=== PATIENT | female | born 1950 | race Caucasian/White ===

== ENCOUNTER 2020-09-14 04:16 | Day surgery (SDC) | payer MEDICARE ==
[~2020-09-14] VITALS: Ht 177.8 cm; Wt 88.0 kg
[2020-09-14] MEDS ORDERED: DITR5TAB PO (04:51)
[2020-09-14] MEDS ORDERED: LEVO125C PO (04:51)
[2020-09-14] MEDS ORDERED: ATOR1TAB19 PO (04:51)
[2020-09-14] MEDS ORDERED: CAL-TAB2 PO (04:51)
[2020-09-14] MEDS ORDERED: MAGN250T22 PO (04:51)
[2020-09-14] MEDS ORDERED: MULT-90 PO (04:51)
[2020-09-14] MEDS ORDERED: ASPI81CH33 PO (04:51)
[2020-09-14] MEDS ORDERED: BENA25CA4 PO (04:51)
[2020-09-14] MEDS ORDERED: TRAM50TA2 PO (04:51)
[2020-09-14 05:00] LABS: BASO % 0.4 % (0.0-1.0); EOS # 0.1 10^3/uL (0.0-0.5); EOS % 0.9 % (0.0-3.0); HEMATOCRIT 47.6 % (36.0-47.0); HEMOGLOBIN 16.1 g/dl (12.0-15.5); LYMPH # 1.4 10^3/uL (1.5-5.0); LYMPH % 12.1 % (24.0-44.0); MEAN CORPUSCULAR HEMOGLOBIN 32.1 pg (27.0-33.0); MEAN CORPUSCULAR HGB CONC 33.8 g/dl (32.0-36.5); MEAN CORPUSCULAR VOLUME 94.8 fl (80.0-96.0); MONO # 0.6 10^3/uL (0.0-0.8); MONO % 5.2 % (2.0-8.0); NEUTROPHILS # 9.2 10^3/uL (1.5-8.5); NEUTROPHILS % 80.9 % (36.0-66.0); PLATELET COUNT, AUTOMATED 243 10^3/uL (150-450); RED BLOOD COUNT 5.02 10^6/uL (4.00-5.40); WHITE BLOOD COUNT 11.4 10^3/uL (4.0-10.0)
[2020-09-14] MEDS ORDERED: ONDANSETRON 4MG/2ML VIAL IV ONE ×3 (05:10→10:25)
[2020-09-14] MEDS ORDERED: ASPIRIN 81 MG CHEW TABLET PO ONE (05:10)
[2020-09-14 05:23] LABS: BLOOD UREA NITROGEN 11 MG/DL (7-18); CALCIUM LEVEL 9.4 MG/DL (8.8-10.2); CARBON DIOXIDE LEVEL 29 MEQ/L (21-32); CHLORIDE LEVEL 105 MEQ/L (98-107); CREATININE FOR GFR 0.55 MG/DL (0.55-1.30); GLOMERULAR FILTRATION RATE > 60.0 (>45); GLUCOSE, FASTING 169 MG/DL (70-100); POTASSIUM SERUM 4.1 MEQ/L (3.5-5.1); SODIUM LEVEL 139 MEQ/L (136-145)
[2020-09-14] MEDS: NITROGLYCERIN 0.4 MG SUBL TABLET SL PRN ×2 (05:37→05:46)
[2020-09-14 05:46] VITALS: BP 133/65
[2020-09-14] MEDS ORDERED: ISOVUE-370 76% 100ML VIAL As Ordered ONE (06:00)
[2020-09-14] MEDS: MORPHINE 4 MG/ML 1ML VIAL/SYRINGE (J2270) IV PRN ×2 (06:02→10:07)
[2020-09-14 06:15] LABS: ALBUMIN 4.3 GM/DL (3.2-5.2); ALT/SGPT 64 U/L (12-78); BILIRUBIN,DIRECT 0.3 MG/DL (0.0-0.2); BILIRUBIN,TOTAL 0.7 MG/DL (0.2-1.0); LIPASE 86 U/L (73-393)
--- NOTE | 2020-09-14 06:36 | REPVR ---
PROCEDURE INFORMATION: Exam: XR Chest Exam date and time: 09/14/20 (4:49am) Age: 69 years old Clinical indication: Chest pain TECHNIQUE: Imaging protocol: Portable CXR Views: 1 view COMPARISON: No relevant prior studies available FINDINGS: Lungs: Unremarkable. No consolidation. Pleural spaces: Unremarkable. No pleural effusions. No pneumothorax. Heart/Mediastinum: No cardiomegaly. Aortic knob calcification. Bones/joints: Scoliotic levoscoliosis of the lumbar spine. IMPRESSION: No acute findings. Electronically signed by: Daysi Castro On 09/14/2020 06:36:35 AM
--- NOTE | 2020-09-14 07:28 | REPVR ---
PROCEDURE INFORMATION: Exam: CTA Chest With Contrast Exam date and time: 09/14/2020 6:25 AM Age: 69 years old Clinical indication: Other: Chest pain, epigastric pain TECHNIQUE: Imaging protocol: Computed tomographic angiography of the chest with contrast. 3D rendering (Not supervised by radiologist): MIP and/or 3D reconstructed images were created by the technologist. Radiation optimization: All CT scans at this facility use at least one of these dose optimization techniques: automated exposure control; mA and/or kV adjustment per patient size (includes targeted exams where dose is matched to clinical indication); or iterative reconstruction. Contrast material: ISOVUE 370; Contrast volume: 100 ml; Contrast route: INTRAVENOUS (IV); COMPARISON: CR PORTABLE CHEST X-RAY 09/14/2020 4:47 AM FINDINGS: Pulmonary arteries: No pulmonary emboli. Aorta: No aortic aneurysm. No aortic dissection. Lungs: There is some patchy basilar atelectasis. Pleural spaces: No pneumothorax. No pleural effusion. Heart: No cardiomegaly. No pericardial effusion. Mediastinal space: There is a small hiatal hernia. Lymph nodes: No enlarged lymph nodes. Bones/joints: There are degenerative changes of the spine. Soft tissues: Unremarkable. IMPRESSION: There is no pulmonary embolism. Electronically signed by: Kirby Lee On 09/14/2020 07:27:42 AM
--- NOTE | 2020-09-14 07:30 | REPVR ---
PROCEDURE INFORMATION: Exam: CT Abdomen And Pelvis With Contrast Exam date and time: 09/14/2020 6:25 AM Age: 69 years old Clinical indication: Other: Chest pain, epigastric pain TECHNIQUE: Imaging protocol: Computed tomography of the abdomen and pelvis with contrast. Radiation optimization: All CT scans at this facility use at least one of these dose optimization techniques: automated exposure control; mA and/or kV adjustment per patient size (includes targeted exams where dose is matched to clinical indication); or iterative reconstruction. Contrast material: ISOVUE 370; Contrast volume: 100 ml; Contrast route: INTRAVENOUS (IV); COMPARISON: CR PORTABLE CHEST X-RAY 09/14/2020 4:47 AM FINDINGS: Liver: Normal. No mass. Gallbladder and bile ducts: The gallbladder is quite distended measuring 16.2 cm in length. There is pericholecystic fluid. Pancreas: Normal. No ductal dilation. Spleen: Normal. No splenomegaly. Adrenal glands: Normal. No mass. Kidneys and ureters: Normal. No hydronephrosis. Stomach and bowel: There is a moderate amount of stool throughout the nondilated colon. Appendix: No evidence of appendicitis. Intraperitoneal space: No free air. No significant fluid collection. Vasculature: There is athrosclerotic disease involving the abdominal aorta and pelvis vessels without an aneurysm. Lymph nodes: No enlarged lymph nodes. Urinary bladder: Unremarkable as visualized. Reproductive: Uterus is surgically absent. Bones/joints: There are degenerative changes of the spine. There is grade 1 anterolisthesis at L4-L5. Soft tissues: Unremarkable. Other findings: . IMPRESSION: Distended gallbladder with pericholecystic fluid. Acute cholecystitis may be present. A follow-up ultrasound should be performed. Electronically signed by: Kirby Lee On 09/14/2020 07:29:53 AM
[2020-09-14 07:58] LABS: BASO % 0.3 % (0.0-1.0); EOS % 0.1 % (0.0-3.0); LYMPH # 1.1 10^3/uL (1.5-5.0); MONO # 0.8 10^3/uL (0.0-0.8); MONO % 5.7 % (2.0-8.0); NEUTROPHILS # 11.8 10^3/uL (1.5-8.5); NEUTROPHILS % 85.6 % (36.0-66.0); WHITE BLOOD COUNT 13.8 10^3/uL (4.0-10.0)
[2020-09-14 08:26] LABS: ALBUMIN 3.8 GM/DL (3.2-5.2); BILIRUBIN,DIRECT 0.3 MG/DL (0.0-0.2); BILIRUBIN,TOTAL 0.7 MG/DL (0.2-1.0)
--- NOTE | 2020-09-14 08:40 | REP ---
INDICATION: cholecystitis. COMPARISON: CT abdomen 09/14/2020 TECHNIQUE: Standard right upper quadrant sonography. FINDINGS: Of the liver is homogeneous in echotexture and does not show focal hepatic mass, intrahepatic biliary dilatation, hepatomegaly or cyst. No definite ascites. The gallbladder is very distended as on CT with poor definition of margins. There is extensive echogenic material throughout with some speckled echoes and some shadowing suggesting sludge with crystals in it. Small amount pericholecystic fluid difficult to exclude. No measurable stone with shadowing seen. The common duct is 6 mm and without a gross filling defect. Pancreas is well seen and with out any ductal dilatation, echogenic focus to suggest stone within a duct, mass or adjacent peripancreatic fluid. The right kidney is 11.7 x 3.9 x 6.4 cm without hydronephrosis or definite stone. IMPRESSION: 1. Hydrops of the gallbladder as on CT with distended gallbladder filled with echogenic sludge and speckled echoes within it. No measurable shadowing stones identified. Small amount of pericholecystic fluid difficult to exclude. No sonographic Salgado sign described. 2. Liver homogeneous without acute finding. No intrahepatic biliary dilatation. 3. Common duct is 6 mm diameter without filling defect. 4. Pancreas well seen and unremarkable. 5. Right kidney unremarkable. <Electronically signed by Jm Ochoa > 09/14/20 [id number]
[2020-09-14] MEDS ORDERED: PIPERACILLIN/TAZOBACTAM SOD 3.375 GM in D5W MINI-BAG PLUS 50 ML IV ONE (09:45)
[2020-09-14] MEDS ORDERED: NS 1,000 ML IV SCH (10:10)
[2020-09-14] MEDS ORDERED: MORPHINE 4 MG/ML 1ML VIAL/SYRINGE (J2270) IV PRN (10:25)
[2020-09-14] MEDS ORDERED: GABA-282 PO (10:25)
[2020-09-14] MEDS ORDERED: LEVO100T5 PO (10:25)
[2020-09-14] MEDS ORDERED: OXYB5TAB10 PO (10:25)
[2020-09-14] MEDS ORDERED: ONDANSETRON 4MG/2ML VIAL IV PRN ×2 (11:50→20:35)
[2020-09-14] MEDS ORDERED: KETOROLAC 30 MG/ML 1ML VIAL IV PRN ×2 (11:50→20:30)
[2020-09-14] MEDS: NS 1,000 ML IV SCH ×2 (13:08→23:50)
[2020-09-14 14:20] LABS: RSV AMPLIFICATION NEGATIVE (NEGATIVE)
--- NOTE | 2020-09-14 14:36 | HPE ---
HISTORY AND PHYSICAL DATE OF ADMISSION: 09/14/2020 ADMITTING DIAGNOSIS: Acute cholecystitis. 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 She reported that she was feeling well until the evening of Monday the 12 of September when after eating out she noted the onset of some lower chest and upper abdominal pain. She described a persistent pressure in the epigastrium. She developed some nausea and vomiting. She denied any fevers or chills. The pain persisted and actually began to worsen further. After presenting to the Emergency Department she was initially evaluated for a possible cardiac issue. Troponin is 0 and imaging showed no evidence of pulmonary embolus on CT angiogram. Laboratory studies showed a mild elevation of her white count to 11,000 with 81% neutrophils. She had a CT scan of the abdomen and pelvis that showed a markedly distended gallbladder with some pericholecystic fluid. A follow up ultrasound confirmed a distended gallbladder filled with echogenic sludge with speckled echos. The common bile duct was 6 mm in diameter. She continued to have pain in the upper abdomen with tenderness in the right mid and lateral abdomen. I was consulted and the patient is now being placed on surgical day care status for acute cholecystitis. ALLERGIES: Patient reports that PENICILLIN use has led to a fungal infection previously, but she has not had an adverse reaction to the drugs directly. MEDICATIONS: Include: 1. Aspirin 81 mg by mouth daily. 2. Atorvastatin 10 mg by mouth daily. 3. Calcium, magnesium and zinc tablet daily. 4. Benadryl 25 mg by mouth at bedtime. 5. Gabapentin 900 mg by mouth three times daily. 6. Levothyroxine 100 mcg by mouth daily in the morning. 7. Magnesium 250 mg by mouth daily. 8. Multivitamin daily. 9. Oxybutynin chloride 5 mg by mouth twice daily. 10. Tramadol 50 mg, 1 tablet twice daily as needed for pain. SURGICAL HISTORY: 1. Patient has undergone a left breast lumpectomy with axillary sampling and radiation for an early stage breast cancer. She was treated with anastrozole for 5 years which was recently stopped. 2. She has a history of a hysterectomy for endometrial carcinoma and reports that she had no requirements for any further treatment after this. 3. She reports having had a tubal ligation done laparoscopically, but apparently there was some form of vascular injury at that surgery requiring extension of the incision somewhat. MEDICAL HISTORY: Patient reports a history of: 1. Supraventricular tachycardia which in the past had caused her to have a syncopal episode. She was evaluated by a milk route deliverer who did not feel there was any need for ongoing treatment for this. 2. History of hypothyroidism which is long standing. 3. Chronic back pain from degenerative disc disease. She is taking the gabapentin regularly and the tramadol on a p.r.n. basis. 4. Hypercholesterolemia. 5. She had her left breast cancer treated and her surgery for her endometrial carcinoma and required no additional treatment. Patient denies any history of other cardiac or pulmonary issues. She has no history of DVT or pulmonary embolus. FAMILY HISTORY: Noncontributory. 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 Her from prostate cancer 2 years ago. She is currently spending the summer in [place]. She is a nonsmoker and denies excessive alcohol intake. REVIEW OF SYSTEMS: Reveals no history of chest pain, palpitations, angina or myocardial infarction. She denies any cough, wheezing or sputum production. She has no history of peptic ulcer disease, hepatitis, pancreatitis or yellow jaundice. She denies any dysuria or hematuria. Other than her back pain she has no additional orthopedic issues. There is no history of DVT or pulmonary embolus. PHYSICAL EXAMINATION: GENERAL APPEARANCE: A pleasant woman lying quietly on the stretcher in the Emergency Department. She is alert, oriented and cooperative with the exam. SKIN: Warm and dry. HEENT: Sclerae are anicteric. Mucous membranes are moist. NECK: Supple without mass or bruit. HEART: Regular rate and rhythm. There is no murmur identified. LUNGS: Clear to auscultation bilaterally. ABDOMEN: Flat. She has some bowel sounds present. She has a few small scars consistent with her prior surgery. There is no sign of hernia. There is no tympany to percussion and no tenderness to percussion. There is on palpation tenderness in the right mid-abdomen extending down into the upper portion of the right lower quadrant. There is no definite mass palpable. EXTREMITIES: No peripheral edema and she has palpable radial and dorsalis pedis pulses. LABORATORY DATA: Laboratory studies include a CBC with a differential showing a white blood cell count of 11.4 with 81% neutrophils, 12% lymphocytes and 5% monocytes. Hemoglobin 16, hematocrit 48. On repeat approximately 3 hours later her white count was 14 with 86% neutrophils and 8% lymphocytes. Chemistry profile showed normal electrolytes with a BUN of 11, creatinine 0.6 and a glucose of 169. Total bilirubin is 0.7 with a direct of 0.3. AST 38, ALT 64, alkaline phosphatase 96 and a lipase of 86. A troponin level was 0.0. RADIOLOGY STUDIES: Chest x-ray revealed no acute findings. Her CT angiogram of the chest showed no evidence of pulmonary embolus. Abdomen and pelvis CT and gallbladder ultrasound are as noted in the History of Present Illness. IMPRESSIONS: 1. Acute cholecystitis. 2. History of supraventricular tachycardia. 3. Hypothyroidism. 4. Hypercholesterolemia. 5. Chronic back pain from degenerative disc disease. 6. Personal history of left breast cancer. 7. Personal history of endometrial cancer. PLAN: Patient was counseled regarding the presence of a markedly distended and apparently inflamed gallbladder. I advised her that the best approach is to start her on antibiotics and proceed with laparoscopic cholecystectomy at the earliest opportunity. The indications for the surgery as well as the risks and possible benefits were discussed. Risks include, but are not limited to bleeding, infection, scarring, adverse drug reaction, need for further surgery, injury of internal organ, leak of bile, and hernia. The patient had an opportunity to ask questions. These were answered to the best of my ability. She desires to proceed with the surgery. She will be continued on Zosyn for antibiotic coverage and we will add her into the OR schedule for later this afternoon. NATALIA
[2020-09-14] MEDS: MORPHINE 2 MG/ML 1ML VIAL (J2270) IV PRN (14:50)
[2020-09-14] MEDS ORDERED: BUPIVACAINE HCL 0.25% 30ML VIAL As Ordered ONE (14:56)
[2020-09-14] MEDS: PIPERACILLIN/TAZOBACTAM SOD 3.375 GM in D5W MINI-BAG PLUS 50 ML IV SCH ×2 (17:00→23:50)
[2020-09-14] MEDS ORDERED: ZOSYN 3.375GM VIAL (J2543) As Ordered ONE (17:44)
[2020-09-14] MEDS ORDERED: ePHEDrine SULFATE 25 MG/5 ML(5MG/ML) SYRINGE As Ordered ONE (18:57)
[2020-09-14] MEDS ORDERED: ACETAMINOPHEN 1000MG 100ML IV BTL (OFIRMEV) (J0131 PER 10MG) As Ordered ONE (18:57)
[2020-09-14] MEDS ORDERED: SUGAMMADEX SODIUM 500 MG/5 ML VIAL (BRIDION) As Ordered ONE (18:57)
[2020-09-14] MEDS ORDERED: LIDOCAINE 2% 100MG/5ML SDV (FOR ANES.) As Ordered ONE (18:57)
[2020-09-14] MEDS ORDERED: propofoL 200 MG/20 ML VIAL As Ordered ONE (18:57)
[2020-09-14] MEDS ORDERED: fentaNYL 250 MCG/5 ML INJECTION (J3010) As Ordered ONE (18:57)
[2020-09-14] MEDS ORDERED: MIDAZOLAM INJ 2MG/2ML VIAL (J2250 PER 1MG) As Ordered ONE (18:57)
[2020-09-14] MEDS ORDERED: PHENYLephrine 500MCG 5ML (100MCG/ML) SYRINGE As Ordered ONE (18:57)
[2020-09-14] MEDS ORDERED: ROCURONIUM BROMIDE 50 MG/5 ML VIAL As Ordered ONE (18:57)
[2020-09-14] MEDS ORDERED: ONDANSETRON 4MG/2ML VIAL As Ordered ONE (18:58)
[2020-09-14] MEDS ORDERED: dexameTHASONE 4 MG/ML 1ML VIAL (J1100 PER 1MG) As Ordered ONE (18:58)
[2020-09-14] MEDS ORDERED: ACETAMINOPHEN TAB 650MG DOSE (2X325MG) PO PRN (20:30)
[2020-09-14] MEDS ORDERED: oxyCODONE 5MG TAB PO PRN (20:35)
[2020-09-14] MEDS ORDERED: fentaNYL 100 MCG/2 ML INJECTION (J3010) IV PRN (20:35)
--- NOTE | 2020-09-14 21:10 | ECGEPIP ---
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
[2020-09-14 21:30] VITALS: BP 122/60
[2020-09-14 22:00] VITALS: BP 125/62
[2020-09-14 23:00] VITALS: BP 131/58
[2020-09-14] MEDS: GABAPENTIN 300 MG CAP PO SCH (23:50)
[2020-09-15 02:00] VITALS: BP 126/63
[2020-09-15] MEDS: PIPERACILLIN/TAZOBACTAM SOD 3.375 GM in D5W MINI-BAG PLUS 50 ML IV SCH ×3 (05:43→17:00)
[2020-09-15 06:00] VITALS: BP 105/52
[2020-09-15] MEDS ORDERED: LEVOTHYROXINE 100MCG TABLET (0.1MG) PO SCH (06:00)
[2020-09-15 07:15] LABS: BASO # 0.1 10^3/uL (0.0-0.2); BASO % 0.4 % (0.0-1.0); EOS # 0.2 10^3/uL (0.0-0.5); EOS % 1.7 % (0.0-3.0); HEMATOCRIT 40.2 % (36.0-47.0); LYMPH # 2.4 10^3/uL (1.5-5.0); LYMPH % 17.9 % (24.0-44.0); MEAN CORPUSCULAR HEMOGLOBIN 32.5 pg (27.0-33.0); MEAN CORPUSCULAR HGB CONC 33.3 g/dl (32.0-36.5); MEAN CORPUSCULAR VOLUME 97.6 fl (80.0-96.0); MONO # 1.4 10^3/uL (0.0-0.8); MONO % 10.2 % (2.0-8.0); NEUTROPHILS # 9.2 10^3/uL (1.5-8.5); NEUTROPHILS % 69.4 % (36.0-66.0); PLATELET COUNT, AUTOMATED 184 10^3/uL (150-450); RED BLOOD COUNT 4.12 10^6/uL (4.00-5.40); WHITE BLOOD COUNT 13.3 10^3/uL (4.0-10.0)
[2020-09-15 07:19] LABS: HEMOGLOBIN 13.4 g/dl (12.0-15.5)
[2020-09-15 07:36] LABS: ALBUMIN 2.8 GM/DL (3.2-5.2); ALT/SGPT 62 U/L (12-78); BLOOD UREA NITROGEN 15 MG/DL (7-18); CARBON DIOXIDE LEVEL 28 MEQ/L (21-32); CHLORIDE LEVEL 108 MEQ/L (98-107); CREATININE FOR GFR 0.39 MG/DL (0.55-1.30); GLOMERULAR FILTRATION RATE > 60.0 (>45); GLUCOSE, FASTING 117 MG/DL (70-100); POTASSIUM SERUM 3.8 MEQ/L (3.5-5.1); SODIUM LEVEL 140 MEQ/L (136-145); TOTAL PROTEIN 6.2 GM/DL (6.4-8.2)
[2020-09-15] MEDS: GABAPENTIN 300 MG CAP PO SCH ×2 (08:09→17:15)
[2020-09-15] MEDS ORDERED: ATORVASTATIN 10 MG TAB PO SCH (09:00)
[2020-09-15 10:00] VITALS: BP 118/62
[2020-09-15] MEDS: NS 1,000 ML IV SCH (10:18)
[2020-09-15] MEDS ORDERED: NORCO, ANEXSIA 5/325MG TABLET (HYDROcodone/ACETAMINOPHEN) PO PRN (11:35)
[2020-09-15 14:00] VITALS: BP 135/71
[2020-09-15] MEDS: MORPHINE 2 MG/ML 1ML VIAL (J2270) IV PRN (15:03)
--- NOTE | 2020-09-16 18:16 | RO ---
OPERATIVE NOTE DATE OF OPERATION: 09/14/2020 PREOPERATIVE DIAGNOSIS: Acute cholecystitis. POSTOPERATIVE DIAGNOSIS: Cholelithiasis with acute cholecystitis, possible gangrenous cholecystitis. PROCEDURE PERFORMED: Laparoscopic cholecystectomy. SURGEON: Parker Nguyen MD TRAFFIC RATE CLERK: None. ANESTHESIA: General. INDICATIONS FOR THE PROCEDURE: The patient is a 69-year-old woman who presented to the emergency department with a roughly 1-1/2 day history of upper abdominal pain with associated nausea and vomiting. She presented to the emergency department with severe pain in the right upper quadrant extending down into the right mid-abdomen. She had an elevated white blood cell count. A CT scan and ultrasound both showed a markedly distended gallbladder with the ultrasound showing echogenic material throughout the gallbladder with some speckled echoes and some shadowing. There was some pericholecystic fluid identified. The patient's exam and history and findings were felt to be consistent with acute cholecystitis and she is now for a laparoscopic cholecystectomy. OPERATIVE PROCEDURE: The patient was brought to the operating room and placed on the table in a supine position. She was placed under general endotracheal anesthesia. The patient's abdomen was prepped and draped in a sterile fashion. 1/4% Marcaine was infiltrated at each of the trocar sites as needed. Initial entry was in the left upper quadrant approximately 5 cm lateral to the midline. A short transverse incision was made and a Veress needle was inserted. After a positive hanging drop test, the abdomen was inflated with carbon dioxide gas. A 5 mm port was placed over a 5 mm scope and advanced through the abdominal wall without difficulty. Initial examination showed a markedly distended, edematous gallbladder extending into the right mid-abdomen. The fundus of the gallbladder was quite darkened. There was some free bilious fluid in the right paracolic gutter and extending up along the lateral aspect of the liver. The anterior abdominal wall was inspected. There appeared to be the start of a small hernia in the epigastrium slightly above the umbilicus at the site of a prior scar. I elected to make my second port site at this location. A longitudinal incision was made over this scar and an 11 mm port was placed without difficulty. Subsequently two 5 mm ports were placed in the right upper quadrant as well. The patient was tilted slightly to a reverse Trendelenburg position and rolled to the left. A suction improvement analyst was used to remove the bilious fluid from the right upper quadrant. The gallbladder was better inspected and there was marked edema and thickening of the gallbladder wall. The end of the fundus of the gallbladder was quite dark possibly representing bile staining. There was no obvious perforation and the gallbladder remained tensely distended. An aspirating needle was inserted and large amount of thick, blackish fluid was aspirated from the gallbladder. Culturettes were obtained with aerobic and anaerobic culturettes from this fluid. A gram stain was also requested. Once the gallbladder had been aspirated, the wall was still quite thickened but it was possible to grasp the gallbladder to manipulate this. The gallbladder was grasped and elected. There was obviously extensive edema in the tissues surrounding the gallbladder. This included in the area of the gallbladder neck and extending into the michael hepatis and about the duodenum. The peritoneum was opened along the gallbladder neck using the hook cautery. With careful dissection through this area, a cholecystic arterial branch was identified and this was doubly clipped with hemoclips and divided. With further dissection, the cystic duct was clearly identified. This was doubly clipped with hemoclips and divided as well. With further dissection, a second arterial branch was identified and controlled with clips. The gallbladder was then dissected free from the gallbladder bed using cautery dissection. Because of the marked edema in the surrounding tissues, this was a slower process. The gallbladder was not perforated in the course of dissection. The gallbladder was placed in an Endopouch. The right upper quadrant was the copiously irrigated with saline. Several bleeding points on the gallbladder bed were controlled with the cautery. The patient was gradually returned to a flat position. A small amount of lightly colored fluid in the pelvic was aspirated as well. Final inspection of the right upper quadrant showed no evidence of bleeding or bile leak. Because of the extensive inflammation, I elected to place a drain. A 19 Portuguese Kai drain was inserted through the supraumbilical port and directed out through the lateral right upper quadrant port. This was placed across the subhepatic space. The abdomen was then deflated and the ports were all removed. The incision at the supraumbilical site was extended to allow passage of the markedly thickened gallbladder through this site. The incision was extended to perhaps 3 to 3-1/2 cm. On removing the gallbladder, there were some definite stones palpable within the gallbladder and this was sent for permanent pathology. The peritoneum at the supraumbilical site was closed with a running suture of 2-0 Vicryl. The fascia was then closed with a running suture of 2-0 PDS. The drain in the right upper quadrant was sutured to the skin with a 2-0 silk and connected to a Emeka-Millard bulb. The skin incisions were all closed with buried sutures of 4-0 Vicryl and Steri-Strips. Some additional local anesthesia was infiltrated about the supraumbilical site. Light dressings were applied. The patient tolerated the procedure without apparent complication. She was awakened in the operating room, extubated and moved to the recovery room in stable condition.
== END 2020-09-15 18:10 | disposition home or self-care (01) ==
LOC: M ED 04:16 → M SDC 04:17 → M MS5PR 20:15 → M SDC 09-15 18:10
PROVIDERS: ATTEND Surgery
DX: K80.12 Calculus of gallbladder with acute and chronic cholecystitis without obstruction (principal); R07.9 Chest pain, unspecified; I47.1 Supraventricular tachycardia; E03.9 Hypothyroidism, unspecified; M51.9 Unspecified thoracic, thoracolumbar and lumbosacral intervertebral disc disorder; E78.00 Pure hypercholesterolemia, unspecified; Z85.3 Personal history of malignant neoplasm of breast; Z85.42 Personal history of malignant neoplasm of other parts of uterus
CPT/HCPCS: 36415; 47562; 71045; 71275; 74177; 76705; 80048; 80053; 80076; 83690; 84484; 85025; 87070; 87075; 87076; 87205; 87631; 88304; 93005; 93041; 94760; 96365; 96366; 96375; 96376; 99285; J0131; J1100; J1885; J2250; J2270; J2370; J2405; J2543; J3010; Q9967

== ENCOUNTER → 2020-11-24 | Outpatient (REF) | payer MEDICARE ==
[~2020-11-24] MED LIST: ASPI81CH33 PO; ATOR1TAB19 PO; BENA25CA4 PO; CAL-TAB2 PO; DITR5TAB PO; GABA-282 PO; LEVO100T5 PO; LEVO125C PO; MAGN250T22 PO; MULT-90 PO; OXYB5TAB10 PO; TRAM50TA2 PO
== END ==
LOC: M WUC 19:49
PROVIDERS: ATTEND Physician Assistant
DX: R30.0 Dysuria (principal)

== ENCOUNTER → 2021-10-29 | Outpatient (CLI) | payer MEDICARE ==
[2021-10-29 12:17] LABS: BASO % 0.6 % (0.0-1.0); EOS # 0.3 10^3/uL (0.0-0.5); EOS % 4.4 % (0.0-3.0); HEMATOCRIT 45.6 % (36.0-47.0); HEMOGLOBIN 15.3 g/dl (12.0-15.5); LYMPH % 29.8 % (24.0-44.0); MEAN CORPUSCULAR HEMOGLOBIN 32.9 pg (27.0-33.0); MEAN CORPUSCULAR HGB CONC 33.6 g/dl (32.0-36.5); MEAN CORPUSCULAR VOLUME 98.1 fl (80.0-96.0); MONO # 0.8 10^3/uL (0.0-0.8); MONO % 11.7 % (2.0-8.0); NEUTROPHILS # 3.5 10^3/uL (1.5-8.5); NEUTROPHILS % 53.2 % (36.0-66.0); PLATELET COUNT, AUTOMATED 232 10^3/uL (150-450); RED BLOOD COUNT 4.65 10^6/uL (4.00-5.40); WHITE BLOOD COUNT 6.7 10^3/uL (4.0-10.0)
[2021-10-29 12:25] LABS: ALBUMIN 3.5 GM/DL (3.2-5.2); ALT/SGPT 53 U/L (12-78); AMYLASE 33 U/L (25-115); BILIRUBIN,TOTAL 0.6 MG/DL (0.2-1.0); BLOOD UREA NITROGEN 16 MG/DL (7-18); CALCIUM LEVEL 9.2 MG/DL (8.8-10.2); CARBON DIOXIDE LEVEL 31 MEQ/L (21-32); CHLORIDE LEVEL 105 MEQ/L (98-107); CREATININE FOR GFR 0.61 MG/DL (0.55-1.30); GLOMERULAR FILTRATION RATE > 60.0 (>45); GLUCOSE, FASTING 107 MG/DL (70-100); LIPASE 134 U/L (73-393); POTASSIUM SERUM 4.4 MEQ/L (3.5-5.1); SODIUM LEVEL 139 MEQ/L (136-145); TOTAL PROTEIN 8.4 GM/DL (6.4-8.2)
== END ==
LOC: M WUC 09:40
PROVIDERS: ATTEND Physician Assistant
DX: R10.84 Generalized abdominal pain (principal)

== ENCOUNTER → 2021-10-29 | Outpatient (CLI) | payer MEDICARE ==
[~2021-10-29] MED LIST changes: +GASTROGRAFIN SOLUTION 30ML (Q9963) As Ordered ONE; +ISOVUE-370 76% 100ML VIAL As Ordered ONE
== END ==
LOC: M RAD 12:02
PROVIDERS: ATTEND Physician Assistant
DX: R10.84 Generalized abdominal pain (principal)
CPT/HCPCS: 74178; Q9963; Q9967

== ENCOUNTER 2024-10-18 12:27 | Emergency (ER) | payer MEDICARE ==
[~2024-10-18] VITALS: Ht 175.3 cm; Wt 104.4 kg
[~2024-10-18 12:27] MED LIST changes: +GABA-1172 PO; -GABA-282 PO; -GASTROGRAFIN SOLUTION 30ML (Q9963) As Ordered ONE; -ISOVUE-370 76% 100ML VIAL As Ordered ONE; -LEVO125C PO; +LEVO125C2 PO; -OXYB5TAB10 PO; +OXYB5TAB14 PO
[2024-10-18 14:01] LABS: BASO # 0.1 10^3/uL (0.0-0.2); BASO % 0.7 % (0.0-1.0); EOS # 0.2 10^3/uL (0.0-0.5); EOS % 3.1 % (0.0-3.0); LYMPH # 2.5 10^3/uL (1.5-5.0); LYMPH % 34.1 % (24.0-44.0); MONO # 0.6 10^3/uL (0.0-0.8); MONO % 8.1 % (2.0-8.0); NEUTROPHILS # 4.0 10^3/uL (1.5-8.5); NEUTROPHILS % 53.7 % (36.0-66.0); PLATELET COUNT, AUTOMATED 220 10^3/uL (150-450)
[2024-10-18 14:06] LABS: KETONE, URINE AUTO RFX NEGATIVE (NEGATIVE); LEUKOCYTE ESTERASE UR AUTO RFX NEGATIVE (NEGATIVE); NITRITE, URINE AUTO RFX NEGATIVE (NEGATIVE); RBC, URINE AUTO RFX 0 /HPF (0-3); SQUAM EPITHELIAL CELL UR AURFX 0 /HPF (0-6); WBC, URINE AUTO RFX 1 /HPF (0-3)
[2024-10-18 14:28] LABS: ALT/SGPT 38 U/L (7.0-40); AST/SGOT 40 U/L (<34); CALCIUM LEVEL 9.7 MG/DL (8.3-10.6); CARBON DIOXIDE LEVEL 31 MMOL/L (20-31); CHLORIDE LEVEL 104 MMOL/L (98-107); CREATININE FOR GFR 0.53 MG/DL (0.55-1.30); GLOMERULAR FILTRATION RATE > 90.0 (>39); POTASSIUM SERUM 4.4 MMOL/L (3.5-5.1); SODIUM LEVEL 143 MMOL/L (136-145)
[2024-10-18] MEDS: KETOROLAC 30 MG/ML 1 ML VIAL IV ONE (17:44)
[2024-10-18 17:59] VITALS: TEMP 97.4
[2024-10-18 18:37] VITALS: BP 132/70; O2SAT 95
[2024-10-18] MEDS: METHOCARBAMOL 1,000 MG/10 ML VIAL IV ONE (19:16)
[2024-10-18] MEDS ORDERED: MIRA3350 PO (19:55)
[2024-10-18] MEDS ORDERED: COLA100C5 PO (19:55)
[2024-10-18] MEDS: DOCUSATE SODIUM 100 MG CAPSULE PO ONE (20:10)
[2024-10-18] MEDS: MAGNESIUM CITRATE 300 ML BTL PO ONE (20:10)
== END 2024-10-18 20:33 | disposition home or self-care (01) ==
LOC: M ED 12:27
DX: K59.00 Constipation, unspecified (principal); M43.16 Spondylolisthesis, lumbar region; I10 Essential (primary) hypertension; N20.0 Calculus of kidney; I70.0 Atherosclerosis of aorta; K74.60 Unspecified cirrhosis of liver; Z90.49 Acquired absence of other specified parts of digestive tract; Z90.710 Acquired absence of both cervix and uterus; Z88.0 Allergy status to penicillin; Z79.899 Other long term (current) drug therapy; Z79.82 Long term (current) use of aspirin
CPT/HCPCS: 74176; 80048; 80076; 81001; 83690; 85025; 96374; 96375; 99284; J1885; J2800